=== PATIENT | male | born 1950 | race Caucasian/White ===

== ENCOUNTER 2021-04-03 02:08 | Day surgery (SDC) | payer MEDICARE, OTHER, SELFPAY ==
[2021-03-24 13:10] VITALS: BMI 30.8
[2021-04-03 12:08] VITALS: BP 136/89; PULSE 86; RESP 20; TEMP 36.3; O2SAT 99; BMI 31.6
--- NOTE | 2021-04-03 12:15 | WPDANESEPPF ---
Anes - Initial Pre Proc Eval Procedure: Operation Date: 04/03/21 13:30 Proposed Procedures p Screening Colonoscopy - Dave Ritter MD Date/Time: 04/03/21 12:15 Surgeon: Dave Ritter MD Pre Op Diagnosis: hx of colon polyps Patient Data Age: 70 Gender: M Height: 1.65 m Weight: 86.4 kg Last Vital Signs Temp 36.3 C L 04/03/21 12:08 Pulse 86 04/03/21 12:08 Resp 20 04/03/21 12:08 BP 136/89 04/03/21 12:08 Pulse Ox 99 04/03/21 12:08 Allergies Allergy/AdvReac Type Severity Reaction Status Date / Time Penicillins Allergy Unknown Itching Verified 04/03/21 12:07 Home Medications Medication Instructions Recorded Confirmed Type empagliflozin 25 mg tablet 25 mg PO DAILY #30 tablet 07/31/19 03/24/21 Rx losartan 100 mg tablet See Rx Instructions .ROUTE 07/21/20 03/24/21 Rx .COMPLEX #90 tablet amlodipine 10 mg tablet 10 mg PO DAILY #90 tablet 07/29/20 03/24/21 Rx lorazepam 0.5 mg tablet 0.5 mg PO BID PRN #30 tablet 09/12/20 03/24/21 Rx sildenafil 50 mg tablet 50 mg PO DAILY PRN #30 tablet 11/04/20 03/24/21 Rx citalopram 40 mg tablet 40 mg PO DAILY #90 tablet 11/25/20 03/24/21 Rx pantoprazole 40 mg tablet,delayed 40 mg PO QAM #90 tablet 01/08/21 03/24/21 Rx release atorvastatin 20 mg tablet 20 mg PO DAILY #90 tablet 01/14/21 03/24/21 Rx bupropion HCl 150 mg tablet,12 hr 150 mg PO BID #60 tablet 03/03/21 03/24/21 Rx sustained-release metformin 1,000 mg tablet 1,000 mg PO BID #180 tablet 03/24/21 04/03/21 Rx Patient hx anesthesia problems: none Family hx anesthesia problems: none PMFSH Past Medical History Medical History (Updated 09/10/20 @ 11:36 by James Gonzales MD) Chronic kidney disease, stage 3 unspecified Family History Family History Father Hypertension Family history of diabetes mellitus in first degree relative Family history of coronary artery disease Mother Family history of malignant neoplasm of breast in first degree relative Social History Social History Smoking status: Never smoker Second hand tobacco smoke exposure: No Alcohol intake: never Substance use: never Substance use type: does not use Living arrangements: with family Gender identity (if verbalized by the patient): Male Spiritual care concerns: No Anes - Eval Final PreProcedure Day of Procedure 04/03/21 12:15 Patient weight: obese Heart: regular rate and rhythm Lungs: clear to auscultation Airway: Mallampati scale class II Neurological: alert and oriented Last oral intake: >/= 8 hours ASA classification: III Emergent: no Anesthetic plan: proceed Anesthesia type and monitoring: general GIVS and standard monitoring Informed Consent: The patient's anesthetic plan and its attendant risks and benefits were discussed with the patient/family/POA. Questions were solicited and answers provided to the satisfaction of the patient/family/POA.
[2021-04-03] MEDS: LACTATED RINGERS 1,000 ML 150 ML IV CONT (12:16)
[2021-04-03 12:20] LABS: Glucose Point of Care 268 mg/dl (65-105)
--- NOTE | 2021-04-03 12:20 | WPDANESEPPF ---
Anes - Initial Pre Proc Eval Procedure: Operation Date: 04/03/21 13:30 Proposed Procedures p Screening Colonoscopy - Dave Ritter MD Date/Time: 04/03/21 12:20 Surgeon: Dave Ritter MD Pre Op Diagnosis: hx of colon polyps Patient Data Age: 70 Gender: M Height: 1.65 m Weight: 86.4 kg Last Vital Signs Temp 36.3 C L 04/03/21 12:08 Pulse 86 04/03/21 12:08 Resp 20 04/03/21 12:08 BP 136/89 04/03/21 12:08 Pulse Ox 99 04/03/21 12:08 Allergies Allergy/AdvReac Type Severity Reaction Status Date / Time Penicillins Allergy Unknown Itching Verified 04/03/21 12:07 Home Medications Medication Instructions Recorded Confirmed Type empagliflozin 25 mg tablet 25 mg PO DAILY #30 tablet 07/31/19 03/24/21 Rx losartan 100 mg tablet See Rx Instructions .ROUTE 07/21/20 03/24/21 Rx .COMPLEX #90 tablet amlodipine 10 mg tablet 10 mg PO DAILY #90 tablet 07/29/20 03/24/21 Rx lorazepam 0.5 mg tablet 0.5 mg PO BID PRN #30 tablet 09/12/20 03/24/21 Rx sildenafil 50 mg tablet 50 mg PO DAILY PRN #30 tablet 11/04/20 03/24/21 Rx citalopram 40 mg tablet 40 mg PO DAILY #90 tablet 11/25/20 03/24/21 Rx pantoprazole 40 mg tablet,delayed 40 mg PO QAM #90 tablet 01/08/21 03/24/21 Rx release atorvastatin 20 mg tablet 20 mg PO DAILY #90 tablet 01/14/21 03/24/21 Rx bupropion HCl 150 mg tablet,12 hr 150 mg PO BID #60 tablet 03/03/21 03/24/21 Rx sustained-release metformin 1,000 mg tablet 1,000 mg PO BID #180 tablet 03/24/21 04/03/21 Rx Laboratory Tests 04/03/21 12:15 POC Capillary Glucose Pending Patient hx anesthesia problems: none Family hx anesthesia problems: none PMFSH Past Medical History Medical History (Updated 09/10/20 @ 11:36 by James Gonzales MD) Chronic kidney disease, stage 3 unspecified Family History Family History Father Hypertension Family history of diabetes mellitus in first degree relative Family history of coronary artery disease Mother Family history of malignant neoplasm of breast in first degree relative Social History Social History Smoking status: Never smoker Second hand tobacco smoke exposure: No Alcohol intake: never Substance use: never Substance use type: does not use Living arrangements: with family Gender identity (if verbalized by the patient): Male Spiritual care concerns: No Anes - Eval Final PreProcedure Day of Procedure 04/03/21 12:20 Patient weight: obese Heart: regular rate and rhythm Lungs: clear to auscultation Airway: Mallampati scale class II and special considerations poor opening Neurological: alert and oriented Last oral intake: >/= 8 hours ASA classification: III Emergent: no Anesthetic plan: proceed Anesthesia type and monitoring: general GIVS and standard monitoring Informed Consent: The patient's anesthetic plan and its attendant risks and benefits were discussed with the patient/family/POA. Questions were solicited and answers provided to the satisfaction of the patient/family/POA.
--- NOTE | 2021-04-03 12:25 | PM.HPGS ---
History of Present Illness History of Present Illness Consent: Risks, benefits, and alternatives have been discussed and questions answered. Patient agrees to proceed with procedure. Chief complaint: hx of colon polyps Narrative: Vinay Steiner is a 70 year old male Here for colon cancer screening. His mother had colon cancer and he has had polyps in the past Review of Systems Review of Systems: All systems reviewed & are unremarkable except as noted in HPI and below PMFSH Past Medical History Medical History Chronic kidney disease, stage 3 unspecified Family History Family History Father Hypertension Family history of diabetes mellitus in first degree relative Family history of coronary artery disease Mother Family history of malignant neoplasm of breast in first degree relative Social History Social History Smoking status: Never smoker Second hand tobacco smoke exposure: No Alcohol intake: never Substance use: never Substance use type: does not use Living arrangements: with family Gender identity (if verbalized by the patient): Male Spiritual care concerns: No Meds Home Medications and Allergies Home Medications Medication Instructions Recorded Confirmed Type empagliflozin 25 mg tablet 25 mg PO DAILY #30 tablet 07/31/19 03/24/21 Rx losartan 100 mg tablet See Rx Instructions .ROUTE 07/21/20 03/24/21 Rx .COMPLEX #90 tablet amlodipine 10 mg tablet 10 mg PO DAILY #90 tablet 07/29/20 03/24/21 Rx lorazepam 0.5 mg tablet 0.5 mg PO BID PRN #30 tablet 09/12/20 03/24/21 Rx sildenafil 50 mg tablet 50 mg PO DAILY PRN #30 tablet 11/04/20 03/24/21 Rx citalopram 40 mg tablet 40 mg PO DAILY #90 tablet 11/25/20 03/24/21 Rx pantoprazole 40 mg tablet,delayed 40 mg PO QAM #90 tablet 01/08/21 03/24/21 Rx release atorvastatin 20 mg tablet 20 mg PO DAILY #90 tablet 01/14/21 03/24/21 Rx bupropion HCl 150 mg tablet,12 hr 150 mg PO BID #60 tablet 03/03/21 03/24/21 Rx sustained-release metformin 1,000 mg tablet 1,000 mg PO BID #180 tablet 03/24/21 04/03/21 Rx Allergies Allergy/AdvReac Type Severity Reaction Status Date / Time Penicillins Allergy Unknown Itching Verified 04/03/21 12:07 Vital Signs Vital Signs - 24 hr 04/03/21 12:08 Temperature 36.3 C L Pulse Rate 86 Respiratory Rate 20 Blood Pressure 136/89 Pulse Oximetry 99 Exam Resp: Auscultation: clear to auscultation bilaterally Cardio: Rate: regular rate Rhythm: regular rhythm GI: GI Palp: Yes Soft to palpation and No Tenderness to palpation present (GI) Assessment and Plan Assessment and plan (1) Colon cancer screening: Code(s): Z12.11 - Encounter for screening for malignant neoplasm of colon Status: Acute
[2021-04-03 13:12] VITALS: BP 116/81; PULSE 65; RESP 19; O2SAT 99
[2021-04-03 13:22] VITALS: BP 137/87; PULSE 71; RESP 19; O2SAT 99
[2021-04-03 13:28] VITALS: BP 132/77; PULSE 63; RESP 19; O2SAT 99
== END 2021-04-03 13:43 | disposition home or self-care (01) ==
PROVIDERS: PCP Family Medicine; Visit Provider Internal Medicine Gastroenterology
PROC: 0DJD8ZZ Inspection of Lower Intestinal Tract, Via Natural or Artificial Opening Endoscopic (ICD-10-PCS; CPT 45378; principal; 2021-04-03 13:30)
DX: Z12.11 Encounter for screening for malignant neoplasm of colon (principal); D12.5 Benign neoplasm of sigmoid colon; N18.30 Chronic kidney disease, stage 3 unspecified; Z79.84 Long term (current) use of oral hypoglycemic drugs; E66.9 Obesity, unspecified; Z68.31 Body mass index [BMI] 31.0-31.9, adult
CPT/HCPCS: 45385; 82948; 88305; J2704; J7120

== ENCOUNTER 2021-07-01 07:23 | Outpatient (CLI) | payer MEDICARE, OTHER, SELFPAY ==
--- NOTE | ~2021-07-01 | CT_ITS ---
EXAMINATION: CT brain wo con DATE: 07/01/2021 08:05 INDICATION: Dizziness and giddiness TECHNIQUE: Computed tomography (CT) of the head was performed without intravenous contrast. The dose- length product was 605.33 mGy-cm. Automated exposure control and iterative reconstruction technique w ere employed. COMPARISON: None FINDINGS: Mild decrease parenchymal volume loss. There are scattered mild periventricular and subcort ical white matter changes, most likely related to small vessel ischemic disease (microangiopathy). No acute intracranial hemorrhage, infarction, mass or mass effect. No ventriculomegaly or midline shift . There is mild intracranial atherosclerosis. Mild mucosal thickening of the ethmoid air cells anteri jorden. Mastoids are pneumatized. No depressed skull fractures. IMPRESSION: 1. No acute intracranial abnormality. 2: Chronic age-related findings. Reviewed, dictated and finalized at location A. ING DYER
== END 2021-07-01 07:24 | disposition home or self-care (01) ==
LOC: ANHIMG 07:29
PROVIDERS: PCP Family Medicine; Visit Provider Nurse Practitioner Family
DX: R42 Dizziness and giddiness (principal); R26.81 Unsteadiness on feet; I67.2 Cerebral atherosclerosis
CPT/HCPCS: 70450

== ENCOUNTER 2023-08-26 12:56 | Emergency (ER) | payer MEDICARE, OTHER, SELFPAY ==
--- NOTE | ~2023-08-26 | XR_ITS ---
Left Knee Technique: AP, lateral, and oblique views were obtained. Clinical History: Pain Findings: No fracture or dislocation is seen. Osseous alignment is anatomic. Joint spaces are preserv ed without degenerative or erosive change. Nonspecific soft tissue mineralization or ossification pos terior posterolateral eighth. No joint effusion is seen. Impression: No acute abnormality. Nonspecific soft tissue calcification versus ossification at the posterolateral aspect of the distal thigh. Reviewed, dictated and finalized at location . SMOKER Impression: No acute abnormality. Nonspecific soft tissue calcification versus ossification at the posterolateral aspect of the distal thigh.
[2023-08-26 12:56] VITALS: BP 155/94; PULSE 100; RESP 17; TEMP 36.4; O2SAT 98
--- NOTE | 2023-08-26 13:19 | ED.GENADULT ---
HPI - General Adult General Chief complaint: Extremity Injury, Lower Stated complaint: left knee pain Time Seen by Provider: 08/26/23 13:03 Source: patient Mode of arrival: wheelchair Limitations: no limitations History of Present Illness HPI narrative: This is a 72-year-old male who presents to the ED with chief complaint of left knee pain. Reports that he injured few days ago when he twisted it the wrong way. He states this happened while he is trying to get into the car and his foot slipped on the pavement. Reports difficulty with ambulation but he is able to walk. Reports pain with weight-bearing. Reports the pain is medial and superior. Denies numbness or weakness. Reports mild swelling. Denies any further sites of pain or injury. Related Data Allergies Allergy/AdvReac Type Severity Reaction Status Date / Time Penicillins Allergy Unknown Itching Verified 08/26/23 12:58 Review of Systems Review of Systems: All systems as dictated in [facility] Past Medical History Medical History Chronic kidney disease, stage 3 unspecified Family History Family History Father Hypertension Family history of diabetes mellitus in first degree relative Family history of coronary artery disease Mother Family history of malignant neoplasm of breast in first degree relative Social History Social History Smoking status: Never smoker Second hand tobacco smoke exposure: No Alcohol intake: never Substance use: never Substance use type: does not use Living arrangements: with family Occupation/Education: retired Gender identity (if verbalized by the patient): Male Sexual Orientation (if Verbalized by the Patient): Straight or Heterosexual Spiritual care concerns: No Exam Narrative: GENERAL: Well-appearing, well-nourished, and in no acute distress. HEAD: Normocephalic, atraumatic. EYES: PERRLA and EOMI. ENT: Nares clear, no rhinorrhea or epistaxis. Mucous membranes moist. Oropharynx without tonsillar hypertrophy exudate or other lesions. NECK: Supple. No adenopathy or masses. CHEST: No respiratory distress. Clear to auscultation. No wheezes rales or rhonchi HEART: Regular rate and rhythm. No murmur heard. Normal peripheral pulses. ABDOMEN: Soft, nontender, nondistended, normal active bowel sounds. MSK: Mild effusion to the left knee. No overlying skin changes or lesions. Minimal tenderness to the superomedial section. Full range of motion. Able to actively extend the knee fully. Denies SKIN: Warm, dry, no rash. NEURO: Alert and oriented x3. No focal deficits. PSYCH: Normal mood and affect. Course Vital Signs Vital signs: Vital Signs Temperature 97.6 F 08/26/23 12:56 Pulse Rate 100 08/26/23 12:56 Respiratory Rate 17 08/26/23 12:56 Blood Pressure 155/94 H 08/26/23 12:56 Pulse Oximetry 98 08/26/23 12:56 Oxygen Delivery Room Air 08/26/23 12:56 Temperature 97.6 F 08/26/23 12:56 Pulse Rate 100 08/26/23 12:56 Respiratory Rate 17 08/26/23 12:56 Blood Pressure 155/94 H 08/26/23 12:56 Pulse Oximetry 98 08/26/23 12:56 Oxygen Delivery Room Air 08/26/23 12:56 Medical Decision Making [facility] Narrative Medical decision making narrative: This is a 72-year-old male who presents to the ED with chief complaint of left knee pain after a twisting injury a couple of days ago. Ambulatory to triage. Vitals are normal. Exam does reveal a little bit of knee effusion minimal tenderness. Full range of motion. No discoloration or signs to point to his septic joint. X-ray shows No acute abnormality. Nonspecific soft tissue calcification versus ossification at the posterolateral aspect of the distal thigh.. Overall symptoms are consistent with musculoskeletal knee injury. It is possible he has a ligame
== END 2023-08-26 14:40 | disposition home or self-care (01) ==
PROVIDERS: Emergency Provider Physician Assistant; PCP Family Medicine
DX: S89.92XA Unspecified injury of left lower leg, initial encounter (principal); N18.30 Chronic kidney disease, stage 3 unspecified; X50.9XXA Other and unspecified overexertion or strenuous movements or postures, initial encounter
CPT/HCPCS: 73562; 99283

== ENCOUNTER 2024-08-08 13:45 | Outpatient (CLI) | payer MEDICARE, SELFPAY ==
--- NOTE | ~2024-08-08 | XR_ITS ---
EXAMINATION: XR hip LT min 2V DATE: 08/08/2024 14:21 INDICATION: Low back pain radiating to left lower limb. TECHNIQUE: 2 views of left hip were obtained. COMPARISON: None. FINDINGS: Alignment is normal. No fracture. There is mild left hip osteoarthritis. IMPRESSION: 1. Mild left hip osteoarthritis. Reviewed, dictated and finalized at location A. TENDER
--- NOTE | ~2024-08-08 | XR_ITS ---
3 VIEWS LUMBAR SPINE Ordering provider: Gosia Gallardo PA-C History: . M54.9 - Dorsalgia, unspecified . Comparison: None. FINDINGS: VERTEBRAL BODIES: No visible fracture or subluxation. Dextroscoliosis. DISK SPACES: Moderate Narrowing of the disc L3-L4 and T11-T12. SOFT TISSUES: Normal. IMPRESSION: No acute osseous abnormality lumbar spine. Degenerative disc disease at the level of L3-L4. Reviewed, dictated and finalized at location A. UCTION ESTIMATOR
== END 2024-08-08 13:46 | disposition home or self-care (01) ==
PROVIDERS: PCP Family Medicine; Visit Provider Physician Assistant
DX: M16.12 Unilateral primary osteoarthritis, left hip (principal); M51.369 Other intervertebral disc degeneration, lumbar region without mention of lumbar back pain or lower extremity pain
CPT/HCPCS: 72100; 73502

== ENCOUNTER 2024-09-08 07:05 | Outpatient (CLI) | payer MEDICARE, SELFPAY ==
--- NOTE | ~2024-09-08 | MR_ITS ---
EXAMINATION: MR hip LT wo con DATE: 09/08/2024 08:08 INDICATION: Low back pain radiating to the left lower limb. TECHNIQUE: Magnetic resonance imaging (MRI) of the left hip was performed without intravenous contra st. Sequences included full-field axial PD-weighted FS FSE and T1-weighted FSE, coronal of the pelvis with PD-weighted FS FSE, T2-weighted FSE and T1-weighted FSE, small field of view of the left hip w ith axial PD-weighted FS FSE, sagittal PD-weighted FS FSE, coronal PD-weighted FS FSE and coronal T2 weighted FSE. Additional radial T1-weighted FGR oriented orthogonal to the acetabular rim were obtai josh for evaluation of the labrum. COMPARISON: None FINDINGS: Bones/labrum/cartilage: Alignment is normal. No fracture, avascular necrosis or pathologic marrow replacing process. Moderat e lower lumbar spondylosis. Mild osteoarthritis at the left hip with nonuniform joint space narrowing with partial thickness cartilage loss most prominent posteriorly and posterosuperiorly. There is mil d subarticular cystic change at the posterior superior margin of the articular surface of the left fe moral head. Similar mild osteoarthritis is seen on the large [id number] images at the contralatera l right hip. There is a small tear at the chondral labral junction of the anterosuperior left acetabu lar labrum. Fluid: Symmetric physiologic amount of fluid within both hip joints. Soft tissues: Normal and symmetric muscle bulk and signal in the pelvis and visualized proximal thighs. The iliopso as, gluteal and proximal hamstring tendons are normal. Prostatomegaly measuring 5.6 x 4.2 cm. Limited evaluation of visceral organs of the pelvis is otherwise unremarkable. No pathologically enlarged p elvic/inguinal lymphadenopathy. IMPRESSION: 1. Mild osteoarthritis at the bilateral hips with labral tear at the anterosuperior left acetabular l abrum. 2. Prostatomegaly. Reviewed, dictated and finalized at location B. OR MATERIALS SCIENTIST IMPRESSION: 1. Mild osteoarthritis at the bilateral hips with labral tear at the anterosupe rior left acetabular labrum. 2. Prostatomegaly.
--- NOTE | ~2024-09-08 | MR_ITS ---
EXAMINATION: MR lumbar spine wo con DATE: 09/08/2024 08:22 INDICATION: Other symptoms and signs involving the musculoskeletal system. TECHNIQUE: Magnetic resonance imaging (MRI) of the lumbar spine was performed without intravenous con trast. Sequences included sagittal T2-weighted FSE, sagittal T2-weighted FS FSE, sagittal T1-weighted FSE, and axial T2-weighted FSE. COMPARISON: Lumbar spine radiograph 08/08/2024 FINDINGS: There is 6 degrees dextrocurvature of lumbar spine. There is mild chronic anterior wedging of T12 vertebral body. There is moderately decreased disc height at T11-T12, severely decreased disc height at L3-L4, and mildly decreased disc height at L4-L5 and L5-S1. The distal spinal cord signal i ntensity is normal. The conus medullaris is at L1. The following disc levels are specifically discuss ed: L1-L2: The disc is bulging. There is mild bilateral facet joint osteoarthritis. There is no neural fo raminal stenosis. There is mild central canal stenosis. L2-L3: The disc is mildly bulging. There is mild bilateral facet joint osteoarthritis. There is mild bilateral neural foraminal stenosis. There is no central canal stenosis. L3-L4: The disc is bulging and has an annular fissure. There is moderate bilateral facet joint osteoa rthritis. There is mild bilateral neural foraminal stenosis. There is mild central canal stenosis. L4-L5: The disc is bulging and has an annular fissure. There is moderate right and severe left facet joint osteoarthritis. There is mild bilateral neural foraminal stenosis. There is mild central canal stenosis. L5-S1: The disc is bulging and has an annular fissure. There is severe bilateral facet joint osteoart hritis. There is mild bilateral neural foraminal stenosis. There is mild central canal stenosis. IMPRESSION: 1. Severe lumbar spondylosis. Reviewed, dictated and finalized at location A. AL PRACTICE MANAGER
--- OUTSIDE RECORDS SUMMARY | 2024-09-14 05:02 | XMS_ITS | Referral Summary ---
Author Organization [facility] [employer] Address [address] [place] [address] Care Team Providers Care Orthopedics Teacher Name Role Phone James Gonzales MD Primary Care Provider Source Comments [facility] [employer],non-owned Affiliates and Associated Physician Practices is amultiple site organization consisting of ambulatory clinics and hospital sitesin [place], [place], [place] and [place]. This disclosure is being madepursuant to the Care Everywhere program and may not contain all information available regarding this patient. Last updated 18.[facility] [employer] Allergies Active Allergy Reactions Criticality Noted Date Comments Rosendo Inhibitors 11/28/2008 Cough 2006 Medications * Be aware that medications may not be up to date on this document. Alwaysverify current medications with the patient. Medication Sig Dispensed Refills Start Date End Date Status glimepiride (AMARYL) 2 MG tablet Take 1 Tab by mouth daily with breakfast. 30 2 11/28/2008 Active valsartan-hydrochloroth iazide (DIOVAN HCT) 160-12.5 MG tablet Take 1 Tab by mouth daily. 30 2 11/28/2008 Active Social History Tobacco Use Types Packs/Day Years Used Date Smoking Tobacco: Never Assessed Sex and Gender Information Value Date Recorded Sex Assigned at Not on file Gender Identity Not on file Sexual Orientation Not on file Plan of Treatment Not on file Care Teams Orthopedics Teacher Relationship Specialty Start Date End Date James Gonzales MD [address] [place] [address] PCP - General 04/11/18
--- OUTSIDE RECORDS SUMMARY | 2024-09-14 05:02 | XMS_ITS | Patient Health Summary ---
Author Organization [facility] [employer] Address [address] [place] [address] Care Team Providers Care Linotype Operator Name Role Phone James Gonzales MD Primary Care Provider [phone] Note from [facility],non-owned Affiliates and Associated Physician Practices is amultiple site organization consisting of ambulatory clinics and hospital sitesin [place], [place], [place] and [place]. This disclosure is being madepursuant to the Care Everywhere program and may not contain all information available regarding this patient. Last updated 18.[facility] [employer] Allergies * Rosendo Inhibitors(Cough 2006) Medications * Be aware that medications may not be up to date on this document. Alwaysverify current medications with the patient. * glimepiride (AMARYL) 2 MG tablet(Started 11/28/2008) Take 1 Tab by mouth daily with breakfast. 2 refills left * valsartan-hydrochlorothiazide (DIOVAN HCT) 160-12.5 MG tablet(Started 11/28/2008) Take 1 Tab by mouth daily. 2 refills left Social History Tobacco Use Types Packs/Day Years Used Date Smoking Tobacco: Never Assessed Sex and Gender Information Value Date Recorded Sex Assigned at Not on file Gender Identity Not on file Sexual Orientation Not on file Care Teams Linotype Operator Relationship Specialty Start Date End Date James Gonzales MD [address] [place] [address] PCP - General 04/11/18
--- OUTSIDE RECORDS SUMMARY | 2024-09-14 05:02 | XMS_ITS | Clinical Summary ---
Author Organization [facility] [employer] Address [address] [place] [address] Care Team Providers Care Commissioner Public Works Name Role Phone James Gonzales MD Primary Care Provider [phone] Source Comments [facility] [employer],non-owned Affiliates and Associated Physician Practices is amultiple site organization consisting of ambulatory clinics and hospital sitesin [place], [place], [place] and [place]. This disclosure is being madepursuant to the Care Everywhere program and may not contain all information available regarding this patient. Last updated 18.[facility] [employer] Allergies Active Allergy Reactions Criticality Noted Date [...] Orientation Not on file Plan of Treatment Health Maintenance Due Date Last Done Comments COLOGUARD (AGES 45-75) - COL ON CA SCREENING 1950 COLON MONITORING 1950 COLONOSCOPY - COLON CA SCREENING 1950 CT COLONOGRAPHY - COLON CA SCREENING 1950 Colorectal Cancer Screening 1950 FIT - COLON CA SCREENING 1950 FLEX SIG - COLON CA SCREENING 1950 LIPID TESTING 1950 MEDICARE AWV ? 12 MONTHS 1950 HEPATITIS C SCREENING 09/28/1969 DTAP/TDAP/TD VACCINES (1 - Tdap) 1970 PNEUMOCOCCAL VACCINE 50+ (1 of 1 - PCV) 2001 ZOSTER VACCINE (1 of 2) 2001 COVID-19 VACCINE (1 - 2023-2 5 season) 2024 INFLUENZA VACCINE (#1) 2024 DEPRESSION SCREENING 08/23/2024 Respiratory Syncytial Virus (RSV) Vaccine Pt: or over 60 yrs (1 - 1-dose 75+ series) 2026 HEPATITIS B VACCINE Aged Out No longe r eligible based on patient's age to complete this topic HIB VACCINE Aged Out No longer eligi ble based on patient's age to complete this topic HPV VACCINE Aged Out No longer eligi ble based on patient's age to complete this topic MENINGOCOCCAL (Group B) VACCINE Aged Out No longer eligible based on patient's age to complete this topic MENINGOCOCCAL VACCINE Aged Out No anil zi eligible based on patient's age to complete this topic Care Teams Commissioner Public Works Relationship Specialty Start Date End Date James Gonzales MD [address] [facility] [place], [place] [id number] [facility] - General 04/11/18
== END 2024-09-08 07:06 | disposition home or self-care (01) ==
LOC: ANHIMG 07:07
PROVIDERS: PCP Family Medicine; Visit Provider Physician Assistant Medical
DX: M47.896 Other spondylosis, lumbar region (principal); M16.0 Bilateral primary osteoarthritis of hip; N40.0 Benign prostatic hyperplasia without lower urinary tract symptoms
CPT/HCPCS: 72148; 73721

== ENCOUNTER 2024-09-19 10:24 | Outpatient (CLI) | payer MEDICARE, SELFPAY ==
--- NOTE | ~2024-09-19 | XR_ITS ---
Clinical Indication: Cough PA and lateral views of the chest: Comparison: 09/28/2017 Findings: The lungs are clear, without evidence of focal consolidation or pleural effusion. Cardiome diastinal silhouette is within normal limits. Bones and soft tissues are unremarkable. Impression: Normal chest. Reviewed, dictated and finalized at [facility]. [facility] Impression: Normal chest.
--- OUTSIDE RECORDS SUMMARY | 2024-09-19 11:27 | XMS_ITS | Referral Summary ---
Author Organization [facility] [employer] Address [address] [place] [address] Care Team Providers Care Job Change Crew Member Name Role Phone James Gonzales MD Primary Care Provider [phone] Source Comments [facility] [employer],non-owned Affiliates and Associated Physician Practices is amultiple site organization consisting of ambulatory clinics and hospital sitesin [place], [place], [place] and [place]. This disclosure is being madepursuant to the Care Everywhere program and may not contain all information available regarding this patient. Last updated 18.[facility] [employer] Allergies Active Allergy Reactions Criticality Noted Date [...] of Treatment Not on file Care Teams Job Change Crew Member Relationship Specialty Start Date End Date James Gonzales MD [address] [facility] [place] [address] PCP - General 04/11/18
--- OUTSIDE RECORDS SUMMARY | 2024-09-19 11:27 | XMS_ITS | Clinical Summary ---
Author Organization [facility] [employer] Address [address] [place] [address] Care Team Providers Care Sales Floor Team Leader Name Role Phone James Gonzales MD Primary Care Provider [phone] Source Comments [facility] [employer],non-owned Affiliates and Associated Physician Practices is amultiple site organization consisting of ambulatory clinics and hospital sitesin [place], [place], [place] and [place]. This disclosure is being madepursuant to the Care Everywhere program and may not contain all information available regarding this patient. Last updated 18.[facility] [employer] Allergies Active Allergy Reactions Criticality Noted Date Comments Rosendo Inhibitors 11/28/2008 Cough 2007 Medications * Be aware that medications may [...] age to complete this topic Care Teams Sales Floor Team Leader Relationship Specialty Start Date End Date James Gonzales MD [address] [facility] [place], [place] [id number] [facility] - General 04/11/18
--- OUTSIDE RECORDS SUMMARY | 2024-09-19 11:27 | XMS_ITS | Patient Health Summary ---
Author Organization [facility] [employer] Address [address] [place] [address] Care Team Providers Care Neurology Technician Name Role Phone James Gonzales MD Primary Care Provider [phone] Note from [facility],non-owned Affiliates and Associated Physician Practices is amultiple site organization consisting of ambulatory clinics and hospital sitesin [place], [place], [place] and [place]. This disclosure is being madepursuant to the Care Everywhere program and may not contain all information available regarding this patient. Last updated 18.[facility] [employer] Allergies * Rosendo Inhibitors(Cough 2006) Medications * [...] Sexual Orientation Not on file Care Teams Neurology Technician Relationship Specialty Start Date End Date James Gonzales MD [address] [place] [address] PCP - General 04/11/18
== END 2024-09-19 10:25 | disposition home or self-care (01) ==
PROVIDERS: PCP Family Medicine; Visit Provider Family Medicine
DX: R05.9 Cough, unspecified (principal)
CPT/HCPCS: 71046

== ENCOUNTER 2024-11-02 10:13 | Outpatient (CLI) | payer MEDICARE, SELFPAY ==
--- NOTE | ~2024-11-02 | MR_ITS ---
MRI of the lumbar spine Clinical History: Radiculopathy Technique: Axial T2-weighted images, and sagittal T1-weighted, T2-weighted, and T2 fat-sat images wer e acquired. Findings: There is no acute fracture or subluxation of the lumbar spine. Vertebral bodies maintain no rmal height and alignment. No bone marrow signal abnormality seen. At L1-L2, there is no disc bulge or herniation. There is minimal facet arthropathy. No central canal stenosis or neural foraminal narrowing. At L2-L3, there is no significant disc bulge or herniation. There is moderate facet arthropathy. No c entral canal stenosis or neural foraminal narrowing. At L3-L4, there is advanced degenerative disc narrowing. There is no significant disc bulge or hernia tion. There is advanced facet arthropathy. No central canal stenosis. Possible minimal left neural fo raminal narrowing. Right neural foramen preserved. At L4-L5, there is minimal disc bulge with severe facet arthropathy. No marcelo central canal stenosis. Possible minimal right neural foraminal narrowing. Left neural foramen preserved. At L5-S1, there is no significant disc bulge or herniation. No spinal canal stenosis or neural forami nal narrowing. Paravertebral soft tissues are unremarkable. Impression: Mild degenerative change, as above. Reviewed, dictated and finalized at [facility]. Impression: Mild degenerative change, as above.
== END 2024-11-02 10:14 | disposition home or self-care (01) ==
LOC: MICIMG 10:15
PROVIDERS: PCP Family Medicine; Visit Provider Orthopaedic Surgery
DX: M51.369 Other intervertebral disc degeneration, lumbar region without mention of lumbar back pain or lower extremity pain (principal)
CPT/HCPCS: 72148

== ENCOUNTER 2025-05-31 00:30 | Day surgery (SDC) | payer MEDICARE, SELFPAY ==
[2025-05-23 13:40] VITALS: BMI 29.9
--- NOTE | 2025-05-31 10:41 | WPDANESEPPF ---
Anes - Initial Pre Proc Eval Procedure: Operation Date: 05/31/25 12:30 Proposed Procedures p Esophagogastroduodenoscopy - Casey Garvey MD Date/Time: 05/31/25 10:41 Surgeon: Casey Garvey MD Pre Op Diagnosis: Unspecified foreign body in larynx causing other i Patient Data Age: 74 Gender: M Height: 1.65 m Weight: 81.65 kg Allergies Allergy/AdvReac Type Severity Reaction Status Date / Time Penicillins Allergy Unknown Itching Verified 05/23/25 13:44 Home Medications ?Medication ?Instructions ?Recorded ?Confirmed ?Type sildenafil 50 mg tablet 50 mg PO DAILY PRN sexual activity 11/04/20 05/23/25 Rx #30 tabs meclizine 12.5 mg tablet 12.5 mg PO TID PRN dizziness #60 06/26/21 05/23/25 Rx tabs bupropion HCl 150 mg tablet,12 hr 150 mg PO BID #180 tabs 03/10/24 05/23/25 Rx sustained-release hydrochlorothiazide 12.5 mg tablet 12.5 mg PO DAILY #90 tabs 11/16/24 05/23/25 Rx sitagliptin phosphate 100 mg 100 mg PO DAILY #30 tabs 01/10/25 05/23/25 Rx tablet (Januvia) metformin 1,000 mg tablet See Rx Instructions .Route 01/11/25 05/23/25 Rx .COMPLEX #180 tabs lancets 33 gauge (OneTouch Delica #100 ea 02/16/25 04/10/25 Rx Plus Lancet) blood sugar diagnostic (Blood #100 ea 03/12/25 04/10/25 Rx Glucose Test strips) atorvastatin 20 mg tablet (Lipitor) 20 mg PO DAILY #90 tabs 03/26/25 05/23/25 Rx lorazepam 0.5 mg tablet (Ativan) 0.5 mg PO BID PRN anxiety #30 tabs 03/26/25 05/23/25 Rx blood-glucose meter #1 ea 03/28/25 04/10/25 Rx pantoprazole 40 mg tablet,delayed 40 mg PO QAM #90 tabs 04/18/25 05/23/25 Rx release (Protonix) losartan 100 mg tablet See Rx Instructions .Route 04/20/25 05/23/25 Rx .COMPLEX #90 tabs amlodipine 10 mg tablet 10 mg PO DAILY #90 tabs 05/02/25 05/23/25 Rx tizanidine 2 mg tablet See Rx Instructions .Route 05/23/25 Rx .COMPLEX #30 tabs escitalopram oxalate 20 mg tablet 20 mg PO DAILY #30 tabs 05/30/25 Rx Patient hx anesthesia problems: none Family hx anesthesia problems: none Results Review: All pre-operative results and documents have been reviewed as part of the pre-operative evaluation. [facility] Past Medical History Medical History Chronic kidney disease, stage 3 unspecified Family History Family History Father Hypertension Family history of diabetes mellitus in first degree relative Family history of coronary artery disease Mother Family history of malignant neoplasm of breast in first degree relative Unknown Neuropathic pain Heart disease Hypertension Diabetes mellitus Kidney disorder Social History Social History Social History: Smoking status: Never smoker Second hand tobacco smoke exposure: No Alcohol intake: never Substance use: never Substance use type: does not use Do You Feel Safe in your Home?: Yes Lack of Transportation: No Lack of Food: Never True Current Housing: I Have Housing Concerned About Future Housing: No Difficulty Paying Gas/Electric Bills: No Difficulty Paying for Meds: No Currently Unemployed: YES Education: Don't Know Difficulty w/ Childcare or Family Care: No Living arrangements: with family Occupation/Education: retired Gender identity (if verbalized by the patient): Male Sexual Orientation (if Verbalized by the Patient): Straight or Heterosexual Spiritual care concerns: No Anes - Eval Final PreProcedure Day of Procedure 05/31/25 10:41 Patient weight: obese Lungs: normal air movement Airway: Mallampati scale class II Neurological: alert and oriented Last oral intake: >/= 8 hours ASA classification: III Emergent: no Anesthetic plan: proceed Anesthesia type and monitoring: general GIVS and standard monitoring Results Review: All pre-operative results and documents have been reviewed as part of the pre-operative evaluation. Informed Consent: The patient's anesthetic plan and its attendant risks and benefits were discussed with the patient/family/POA. Questions were solicited and answers provided to the satisfaction of the patient/family/POA.
[2025-05-31 10:49] VITALS: BP 148/82; PULSE 82; RESP 18; TEMP 36.6; O2SAT 97
[2025-05-31] MEDS: LACTATED RINGERS 1,000 ML 150 ML IV CONT (10:59)
--- NOTE | 2025-05-31 11:16 | PM.HPGS ---
History of Present Illness History of Present Illness Consent: Risks, benefits, and alternatives have been discussed and questions answered. Patient agrees to proceed with procedure. Chief complaint: gerd Narrative: Vinay Steiner is a 74 year old male with gerd on ppi, last egd about 2 years ago with ulcer in esophagus Review of Systems Review of Systems: All systems reviewed & are unremarkable except as noted in HPI and below PMFSH Past Medical History Medical History Chronic kidney disease, stage 3 unspecified Family History Family History Father Hypertension Family history of diabetes mellitus in first degree relative Family history of coronary artery disease Mother Family history of malignant neoplasm of breast in first degree relative Unknown Neuropathic pain Heart disease Hypertension Diabetes mellitus Kidney disorder Social History Social History Social History: Smoking status: Never smoker Second hand tobacco smoke exposure: No Alcohol intake: never Substance use: never Substance use type: does not use Do You Feel Safe in your Home?: Yes Lack of Transportation: No Lack of Food: Never True Current Housing: I Have Housing Concerned About Future Housing: No Difficulty Paying Gas/Electric Bills: No Difficulty Paying for Meds: No Currently Unemployed: YES Education: Don't Know Difficulty w/ Childcare or Family Care: No Living arrangements: with family Occupation/Education: retired Gender identity (if verbalized by the patient): Male Sexual Orientation (if Verbalized by the Patient): Straight or Heterosexual Spiritual care concerns: No Meds Home Medications and Allergies Home Medications ?Medication ?Instructions ?Recorded ?Confirmed ?Type sildenafil 50 mg tablet 50 mg PO DAILY PRN sexual activity 11/04/20 05/23/25 Rx #30 tabs meclizine 12.5 mg tablet 12.5 mg PO TID PRN dizziness #60 06/26/21 05/23/25 Rx tabs bupropion HCl 150 mg tablet,12 hr 150 mg PO BID #180 tabs 03/10/24 05/23/25 Rx sustained-release hydrochlorothiazide 12.5 mg tablet 12.5 mg PO DAILY #90 tabs 11/16/24 05/23/25 Rx sitagliptin phosphate 100 mg 100 mg PO DAILY #30 tabs 01/10/25 05/23/25 Rx tablet (Januvia) metformin 1,000 mg tablet See Rx Instructions .Route 01/11/25 05/23/25 Rx .COMPLEX #180 tabs lancets 33 gauge (OneTouch Delica #100 ea 02/16/25 04/10/25 Rx Plus Lancet) blood sugar diagnostic (Blood #100 ea 03/12/25 04/10/25 Rx Glucose Test strips) atorvastatin 20 mg tablet (Lipitor) 20 mg PO DAILY #90 tabs 03/26/25 05/23/25 Rx lorazepam 0.5 mg tablet (Ativan) 0.5 mg PO BID PRN anxiety #30 tabs 03/26/25 05/23/25 Rx blood-glucose meter #1 ea 03/28/25 04/10/25 Rx pantoprazole 40 mg tablet,delayed 40 mg PO QAM #90 tabs 04/18/25 05/23/25 Rx release (Protonix) losartan 100 mg tablet See Rx Instructions .Route 04/20/25 05/23/25 Rx .COMPLEX #90 tabs amlodipine 10 mg tablet 10 mg PO DAILY #90 tabs 05/02/25 05/23/25 Rx tizanidine 2 mg tablet See Rx Instructions .Route 05/23/25 Rx .COMPLEX #30 tabs escitalopram oxalate 20 mg tablet 20 mg PO DAILY #30 tabs 05/30/25 Rx Allergies Allergy/AdvReac Type Severity Reaction Status Date / Time Penicillins Allergy Unknown Itching Verified 05/31/25 10:48 Vital Signs Vital Signs - 24 hr 05/31/25 10:49 Temperature 98 F Pulse Rate 82 Respiratory Rate 18 Blood Pressure 148/82 H Pulse Oximetry 97 Oxygen Delivery Room Air Exam Const: General: comfortable and no acute distress HENMT: Face/Nose/Sinus: Normal nares present Eyes: General: appearance normal, both eyes and all related structures Resp: Auscultation: clear to auscultation bilaterally Cardio: Rate: regular rate Rhythm: regular rhythm GI: Inspection: non-distended GI Palp: Yes Soft to palpation Skin: General skin exam: normal color Extrem: General: normal to inspection Psych: Mental Status: mental status grossly normal Assessment and Plan Assessment and plan (1) Gastro-esophageal reflux disease without esophagitis: Code(s): K21.9 - Gastro-esophageal reflux disease without esophagitis Status: Acute Assessment and Plan: egd
[2025-05-31] MEDS: BENZOCAINE (*SP) 60 ML SPRAY CAN (HURRICAINE) 1 SPRAY MUCOUS MEM (11:22)
--- NOTE | 2025-05-31 11:28 | S_PTH ---
PATIENT: Vinay Steiner LOC: [facility]#:[id number] AGE/SX: 74/M ROOM: RE05/31/[address]: Casey Garvey MD : 1950 BED: DIS: 05/31/2025 SPEC #: [id number] RECD: 05/31/25 13:35 STATUS: RUDY REFadi #: [id number] [place]: 05/31/25 11:[address]: Casey Garvey DEPT: [facility] Surgical RECD BY: Holly Aggarwal ENTERED: 05/31/25 13:35 SP TYPE: Surgical OTHR DR: James Gonzales MD Tissues: A - Gastric Biopsy Procedures: Hematoxylin and Eosin Stain Gross and Microscopic Level 4
[2025-05-31 11:30] VITALS: BP 128/76; PULSE 62; RESP 17; O2SAT 96
[2025-05-31 11:40] VITALS: BP 141/97; PULSE 65; RESP 17; O2SAT 98
[2025-05-31 11:50] VITALS: BP 159/89; PULSE 71; RESP 19; O2SAT 98
== END 2025-05-31 11:58 | disposition home or self-care (01) ==
PROVIDERS: PCP Family Medicine; Visit Provider Internal Medicine Gastroenterology
PROC: 0DJ08ZZ Inspection of Upper Intestinal Tract, Via Natural or Artificial Opening Endoscopic (ICD-10-PCS; CPT 43239; principal; 2025-05-31 12:30)
DX: K21.9 Gastro-esophageal reflux disease without esophagitis (principal); K31.89 Other diseases of stomach and duodenum; N18.30 Chronic kidney disease, stage 3 unspecified; E66.9 Obesity, unspecified; Z68.31 Body mass index [BMI] 31.0-31.9, adult; Z79.84 Long term (current) use of oral hypoglycemic drugs; Z80.3 Family history of malignant neoplasm of breast; Z82.49 Family history of ischemic heart disease and other diseases of the circulatory system
CPT/HCPCS: 43239; 82948; 88305; J2003; J2704; J7120